=== PATIENT | female | born 1960 | race Caucasian/White ===

== ENCOUNTER 2017-05-23 08:00 | Day surgery (SDC) | payer MEDICARE ==
[2017-05-23] MEDS ORDERED: Marcaine 0.5% SDV 10 ML IJ ONE (08:01)
[2017-05-23] MEDS ORDERED: Xylocaine 1% Vial 30 ML PF IJ ONE (08:01)
[2017-05-23] MEDS ORDERED: Lactated Ringers 1,000 ML IV ONE (08:01)
[2017-05-23] MEDS ORDERED: DIPRIVAN 200 MG/20 ML IV ONE (08:01)
[2017-05-23 08:59] LABS: Hematocrit 49.7 % (35-47); Hemoglobin 16.4 gm/dl (12.0-16.0); Mean Cell Volume 86.4 fl (78-100); Mean Corpuscular Hemoglobin 28.5 pg (26-32); Mean Platelet Volume 11.5 fl (6-9.5); Platelet Count 159 K/mm3 (150-450); Red Blood Count 5.75 M/mm3 (4.1-5.4); Red Cell Distribution Width 14.6 % (11.5-14.0); White Blood Count 10.1 K/mm3 (4.0-10.5)
[2017-05-23 09:18] LABS: INR 0.98 (0.8-3.0)
[2017-05-23 09:21] LABS: PTT 29.9 SECONDS (25.3-37.0)
--- NOTE | 2017-05-23 10:58 | XRAY ---
44 seconds fluoroscopy time in surgery for left L3-4 MBB.
--- NOTE | 2017-05-23 11:08 | XRAY ---
Indication: Left L3-L4 MBB. Intraoperative fluoroscopy was provided for 44 seconds. 2 digital spot images submitted for interpretation demonstrates posterior spinal needle tips projecting over the left L3 and L4 pedicles. Correlate with intraoperative findings/report.
--- NOTE | 2017-05-24 12:06 | OP ---
DATE OF PROCEDURE: 05/23/2017 1003 SURGEON: Nandini Merlos D.O. PREOPERATIVE DIAGNOSIS: Degenerative lumbar spine disease, spondylosis, low back pain. POSTOPERATIVE DIAGNOSIS: Degenerative lumbar spine disease, spondylosis, low back pain. PROCEDURE PERFORMED: Left L4-L3 lumbar medial branch block under fluoroscopic guidance. DESCRIPTION OF THE PROCEDURE: The patient was taken to the operating room and placed in the prone position on the table. Skin at the injection site was prepped and draped in sterile fashion. Under fluoroscopy, bony anatomy of the targeted injection site was visualized. Induction agent was given as per anesthesia while vital signs were monitored. Local anesthetic agent of 2 cc, 1% lidocaine preservative free was introduced to anesthetize the skin and the subcutaneous tissue through the injection site. Under fluoroscopic guidance, a #20 gauge standard spinal needle was advanced into the target medial branch through the oblique approach. The preservative free 0.5 cc of 1% lidocaine and 0.5 cc of 0.25 - 0.5% Marcaine were injected into each of the targeted medial branch nerve. After the needle was being removed, the skin was cleansed with alcohol and then a bandage was applied. No complications or adverse consequences were observed. The patient was returned to the holding area until stabilized before discharge to home. After the patient had been fully recovered from anesthesia, the patient states 100% pain reduction after this procedure. The patient will be followed up within ten days after the injection for re-evaluation.
== END 2017-05-23 10:47 | disposition home or self-care (01) ==
LOC: SDC-PAIN 08:00 → SDC 08:00 → SDC-PAIN 10:47
PROVIDERS: ATTEND Internal Medicine
DX: M46.96 Unspecified inflammatory spondylopathy, lumbar region (principal); M54.5 Low back pain; M47.817 Spondylosis without myelopathy or radiculopathy, lumbosacral region; Z79.891 Long term (current) use of opiate analgesic
CPT/HCPCS: 36415; 64493; 64494; 72020; 77003; 85027; 85610; 85730; J2001; J2704

== ENCOUNTER 2017-07-04 08:54 | Day surgery (SDC) | payer MEDICARE ==
[2017-07-04] MEDS ORDERED: DIPRIVAN 200 MG/20 ML IV ONE (08:55)
[2017-07-04] MEDS ORDERED: LIDOCAINE HCL 1% AMPUL 5 ML IJ ONE (10:00)
[2017-07-04] MEDS ORDERED: LIDOCAINE HCL 2% 100 MG/5 ML ONE (10:00)
[2017-07-04] MEDS ORDERED: Marcaine 0.5% SDV 10 ML ONE (10:00)
[2017-07-04 10:28] LABS: Hematocrit 46.7 % (35-47); Hemoglobin 15.4 gm/dl (12.0-16.0); Mean Cell Volume 85.7 fl (78-100); Mean Platelet Volume 11.3 fl (6-9.5); Platelet Count 162 K/mm3 (150-450); Red Blood Count 5.45 M/mm3 (4.1-5.4); Red Cell Distribution Width 14.9 % (11.5-14.0); White Blood Count 10.2 K/mm3 (4.0-10.5)
[2017-07-04 10:42] LABS: Mean Corpuscular Hemoglobin 28.2 pg (26-32)
[2017-07-04 10:44] LABS: INR 0.96 (0.8-3.0)
[2017-07-04 10:46] LABS: PTT 33.5 SECONDS (25.3-37.0)
--- NOTE | 2017-07-04 12:23 | XRAY ---
Indication: Left L4-L5 MBB. Intraoperative fluoroscopy was provided for 30 seconds. 5 digital spot images submitted for interpretation demonstrates 2 posterior spinal needle tips projecting over the left L4 and L5 pedicles. Correlate with intraoperative findings/report. Incidental partially visualized right common iliac stent graft.
--- NOTE | 2017-07-04 12:58 | XRAY ---
30 seconds fluoroscopy time in surgery for left L4-5 MBB.
--- NOTE | 2017-07-05 09:13 | OP ---
DATE OF PROCEDURE: 07/04/2017 1110 SURGEON: Nandini Merlos D.O. PREOPERATIVE DIAGNOSIS: Degenerative lumbar spine disease, spondylosis, low back pain. POSTOPERATIVE DIAGNOSIS: Degenerative lumbar spine disease, spondylosis, low back pain. PROCEDURE PERFORMED: Left L4-L3 medial branch block under fluoroscopic guidance, this is the second medial branch block under fluoroscopic guidance. DESCRIPTION OF THE PROCEDURE: The patient was taken to the operating room and placed in the prone position on the table. Skin at the injection site was prepped and draped in sterile fashion. Under fluoroscopy, bony anatomy of the targeted injection site was visualized. Induction agent was given as per anesthesia while vital signs were monitored. Local anesthetic agent of 0.5 cc of 1% lidocaine preservative free was introduced to anesthetize the skin and the subcutaneous tissue through the injection site. Under fluoroscopic guidance, a #20 gauge standard spinal needle was advanced into the target medial branch through the oblique approach. The preservative free 0.5 cc of 1% lidocaine and 0.5 cc of 0.25% Marcaine were injected into each of the targeted medial branch nerve. After the needle was being removed, the skin was cleansed with alcohol and then a bandage was applied. No complications or adverse consequences were observed. The patient was returned to the holding area until stabilized before discharge to home. Before the procedure the pain level was 9 out of 10 and after the procedure the pain level is 2 out of 10. The patient will be followed up within ten days after the injection for re-evaluation.
== END 2017-07-04 11:55 | disposition home or self-care (01) ==
LOC: SDC-PAIN 08:54
PROVIDERS: ATTEND Internal Medicine
DX: M46.96 Unspecified inflammatory spondylopathy, lumbar region (principal); M54.5 Low back pain; M47.817 Spondylosis without myelopathy or radiculopathy, lumbosacral region; Z79.891 Long term (current) use of opiate analgesic
CPT/HCPCS: 36415; 64493; 64494; 72020; 77003; 85027; 85610; 85730; J2704

== ENCOUNTER 2018-04-17 07:26 | Day surgery (SDC) | payer MEDICARE ==
[2018-04-17] MEDS ORDERED: Xylocaine-Mpf 2% 5 Ml Vial IJ ONE (07:27)
[2018-04-17] MEDS ORDERED: DIPRIVAN 200 MG/20 ML IV ONE (07:27)
[2018-04-17] MEDS ORDERED: Depo-Medrol 40 MG/ML IM ONE (07:27)
--- NOTE | 2018-04-17 10:43 | XRAY ---
Indication: Bilateral L3-S1 ELIO. Intraoperative fluoroscopy was provided for 16 seconds. Single frontal digital spot image submitted for interpretation demonstrates bilateral spinal needle tips projecting over the expected course of the left and right L3-S1 nerve roots. Correlate with intraoperative findings/report.
--- NOTE | 2018-04-17 11:12 | XRAY ---
16 seconds fluoroscopy time in surgery for bilateral L3-S1 ELIO.
[2018-04-17] MEDS ORDERED: Lactated Ringers 1,000 ML IV ONE (14:29)
== END 2018-04-17 10:27 | disposition home or self-care (01) ==
LOC: SDC-PAIN 07:26
PROVIDERS: ATTEND Psychiatry & Neurology Pain Medicine
DX: M47.817 Spondylosis without myelopathy or radiculopathy, lumbosacral region (principal); M65.839 Other synovitis and tenosynovitis, unspecified forearm
CPT/HCPCS: 64493; 64494; 64495; 72020; 77003; 82962; J1030; J2704